=== PATIENT | male | born 1980 | race Caucasian/White ===

== ENCOUNTER 2018-11-03 19:03 | Emergency (ER) | payer MEDICAID ==
[~2018-11-03] VITALS: Ht 172.7 cm; Wt 70.3 kg
[~2018-11-03 19:03] MED LIST: ATIVAN0.5 M1 PO; IND20 PO; LACTULOSE10 GM/152 PO; PRI20 PO
[2018-11-03 19:18] VITALS: Ht 172.7 cm; Wt 70.3 kg
[2018-11-03 21:07] VITALS: BP 118/76
== END 2018-11-03 21:08 | disposition home or self-care (01) ==
LOC: ED 19:03
DX: F10.239 Alcohol dependence with withdrawal, unspecified (principal); I10 Essential (primary) hypertension; F12.90 Cannabis use, unspecified, uncomplicated; Z13.89 Encounter for screening for other disorder; Z91.048 Other nonmedicinal substance allergy status; Y90.0 Blood alcohol level of less than 20 mg/100 ml

== ENCOUNTER 2019-02-16 23:13 | Emergency (ER) | payer OTHER ==
[~2019-02-16] VITALS: Ht 167.6 cm; Wt 74.0 kg
[2019-02-16 23:22] VITALS: Ht 167.6 cm; Wt 74.0 kg
[2019-02-17 01:41] VITALS: BP 145/60
== END 2019-02-17 01:41 | disposition home or self-care (01) ==
LOC: ED 23:13
DX: S50.11XA Contusion of right forearm, initial encounter (principal); S30.0XXA Contusion of lower back and pelvis, initial encounter; S20.221A Contusion of right back wall of thorax, initial encounter; I10 Essential (primary) hypertension; F17.210 Nicotine dependence, cigarettes, uncomplicated; Z91.030 Bee allergy status; Y04.8XXA Assault by other bodily force, initial encounter; Y93.89 Activity, other specified; Y92.89 Other specified places as the place of occurrence of the external cause; Y99.8 Other external cause status
CPT/HCPCS: 99406

== ENCOUNTER 2019-02-21 08:11 | Emergency (ER) | payer OTHER ==
[~2019-02-21] VITALS: Ht 167.6 cm; Wt 75.3 kg
[2019-02-21 08:27] VITALS: Ht 167.6 cm; Wt 75.3 kg
[2019-02-21 09:18] VITALS: BP 150/96
== END 2019-02-21 09:18 | disposition home or self-care (01) ==
LOC: ED 08:11
DX: S50.11XA Contusion of right forearm, initial encounter (principal); S09.8XXA Other specified injuries of head, initial encounter; H93.19 Tinnitus, unspecified ear; I10 Essential (primary) hypertension; Y04.8XXA Assault by other bodily force, initial encounter; Y93.89 Activity, other specified; Y92.89 Other specified places as the place of occurrence of the external cause; Y99.8 Other external cause status
CPT/HCPCS: Q0162